=== PATIENT | female | born 1995 | race Caucasian/White ===

== ENCOUNTER → 2020-03-11 | Outpatient (CLI) | payer OTHER | LOC: HEART 5 02-07 09:00 | DX: R00.2 Palpitations (principal) ==

== ENCOUNTER 2021-10-24 11:53 | Emergency (ER) | payer SELFPAY ==
[2021-10-24] MEDS ORDERED: IBUPROFEN600 MG PO (14:50)
== END 2021-10-24 15:03 | disposition home or self-care (01) ==
LOC: ER1 11:53
DX: S09.90XA Unspecified injury of head, initial encounter (principal); Z88.2 Allergy status to sulfonamides; W22.8XXA Striking against or struck by other objects, initial encounter; Y92.89 Other specified places as the place of occurrence of the external cause; Y99.0 Civilian activity done for income or pay
CPT/HCPCS: 99283